=== PATIENT | female | born 1955 | race Caucasian/White ===

== ENCOUNTER → 2016-11-24 | Outpatient (CLI) | payer BC | END | disposition disaster alternative care site (69) | LOC: GBCOE 08:18 | DX: Z12.31 Encounter for screening mammogram for malignant neoplasm of breast (principal); N63 Unspecified lump in breast | CPT/HCPCS: G0202 ==

== ENCOUNTER → 2017-02-21 | Outpatient (CLI) | payer BC | END | disposition disaster alternative care site (69) | LOC: GRAD 01-23 11:00 | DX: H55.00 Unspecified nystagmus (principal); I67.89 Other cerebrovascular disease; R42 Dizziness and giddiness ==